=== PATIENT | male | born 1955 | race Caucasian/White ===

== ENCOUNTER → 2021-07-16 | Outpatient (CLI) | payer OTHER | LOC: SJCVC 10:30 | PROVIDERS: ATTEND Internal Medicine | DX: R00.1 Bradycardia, unspecified (principal); E78.00 Pure hypercholesterolemia, unspecified; E11.9 Type 2 diabetes mellitus without complications; I10 Essential (primary) hypertension; E78.5 Hyperlipidemia, unspecified; R00.2 Palpitations; F12.90 Cannabis use, unspecified, uncomplicated; Z87.891 Personal history of nicotine dependence; Z72.89 Other problems related to lifestyle; Z79.82 Long term (current) use of aspirin; Z79.84 Long term (current) use of oral hypoglycemic drugs; Z79.899 Other long term (current) drug therapy ==

== ENCOUNTER → 2021-08-06 | Outpatient (CLI) | payer OTHER | LOC: SJCVCIMAG 07:49 | PROVIDERS: ATTEND Internal Medicine | DX: R00.1 Bradycardia, unspecified (principal); I20.8 Other forms of angina pectoris; R00.2 Palpitations; E11.9 Type 2 diabetes mellitus without complications; I10 Essential (primary) hypertension; E78.00 Pure hypercholesterolemia, unspecified; F12.90 Cannabis use, unspecified, uncomplicated; Z79.82 Long term (current) use of aspirin; Z79.84 Long term (current) use of oral hypoglycemic drugs; Z79.899 Other long term (current) drug therapy; Z87.891 Personal history of nicotine dependence ==

== ENCOUNTER 2021-08-14 06:29 | Observation (INO) | payer OTHER ==
[~2021-08-14] VITALS: Ht 185.4 cm; Wt 79.9 kg
--- NOTE | 2021-08-14 07:20 | EKG ---
[address] [address] ELECTROCARDIOGRAM REPORT Name: RAJAN MUNROE Room #: [facility]#: [id number] Admission: 08/14/21 Attend Phys: Zafar Gonzáles MD, Discharge: Date of : 57 Report #: [id number] [facility] Test Date: 2021-08-14 Test Time: 07:18:04 Pat Name: RAJAN MUNROE Department: Room: Gender: Bridge Inspector: [facility] : 1955 Requested By: Skip Last Order Number: [id number] : Zafar Gonzáles Measurements Intervals [place] Rate: 50 P: 38 NE: 179 QRS: 6 QRSD: 90 T: 47 QT: 448 QTc: 409 Interpretive Statements Sinus rhythm No previous ECG available for comparison Electronically Signed On 08-14-2021 7:20:35 LOOPING INSPECTOR by Zafar Gonzáles [email or web address] <ELECTRONICALLY SIGNED> By: Zafar Gonzáles MD, [facility] 08/14/21719 7 7 Zafar Gonzáles MD, FACC /EPI
[2021-08-14 07:25] LABS: HEMATOCRIT 40.9 % (42.0-52.0); HEMOGLOBIN 13.8 gm/dL (14.0-18.0); MCH 31.1 pg (26.0-34.0); MCHC 33.7 g/dL (28.0-37.0); MCV 92.2 fL (80.0-100.0); RBC 4.44 mil/uL (4.50-6.00); RDW 13.3 % (10.5-14.5); WBC 9.7 thou/uL (4.0-11.0)
[2021-08-14 07:32] LABS: CALCIUM 9.5 mg/dL (8.5-10.1); CREATININE 1.1 mg/dL (0.7-1.3); POTASSIUM 4.3 mmol/L (3.5-5.1)
[2021-08-14 07:34] VITALS: BP 128/63
[2021-08-14] MEDS ORDERED: ASPIRIN EC325 MG PO (07:38)
[2021-08-14] MEDS ORDERED: METFORMIN HCL500 M3 PO (07:39)
[2021-08-14] MEDS ORDERED: LISINOPRIL10 MG PO (07:39)
[2021-08-14] MEDS ORDERED: ZOCOR20 MG PO (07:40)
[2021-08-14] MEDS ORDERED: TOPROL XL25 MG PO (07:40)
[2021-08-14] MEDS ORDERED: SUPER THERAVIT1 EACH PO (07:40)
[2021-08-14] MEDS ORDERED: LIPITOR 20 MG T20 M1 PO (11:04)
[2021-08-14] MEDS ORDERED: EFFIENT10 MG PO (11:04)
[2021-08-14] MEDS ORDERED: ASA81BEC PO (11:04)
[2021-08-14 16:00] VITALS: BP 143/74
--- NOTE | 2021-08-14 18:13 | NUR ---
NO INJURIES OR FALLS THIS SHIFT. ALL SAFETY MEASURES IN PLACE. VSS. PATIENT ABLE TO COMPLETE ADLs INDEPENDENTLY. UP AD MALIKA IN ROOM. HEART CATH COMPLETED TODAY WITH A STENT TO THE PROXIMAL LAD. SITE IS CDI WITH MINIMAL OLD BLOOD AND IS SOFT TO TOUCH. SB WITH PAC ON TELE. PATIENT RESTING IN BED AT THIS TIME. EATEN 100% OF DINNER AND WILL DC HOME TOMORROW. PATIENT PROGRESSING TOWARD POC.
[2021-08-14 19:34] VITALS: BP 134/67
[2021-08-14 23:33] VITALS: BP 118/59
--- NOTE | 2021-08-15 05:36 | NUR ---
ASSUMED PT CARE AT 1900, ALERT AND ORIENTEDX4, R. GROIN CATH SITE CDI, NO HEMATOMA,SR/PVCS ON TELE, C/O CHRONIC BACK PAIN, REFUSED TYL, ASSESSMENTS CHARTED, PLAN FOR D/C HOME TODAY
[2021-08-15 05:42] VITALS: BP 108/56
[2021-08-15 08:05] VITALS: BP 126/69
[2021-08-15 10:35] VITALS: BP 126/69
--- NOTE | 2021-08-15 10:58 | NUR ---
ASSESSMENT CHARTED , MEDS PER MAR - NO CO'S OF PAIN OR NAUSEA. ALRETTE DIET AND FLUIDS. GROIN SITE C/D/I. UP AD MALIKA IN ROOM. HOMETHIS AM INSTRUCTION RE HOME MEDS/ CARE AND FOLLOW UP GIVEN TO PATIENT - STATED UNDERSTANDING OF INSTRUCTION GIVEN. LEFT UNIT IA WHEELCHAIR - HOME ACCOMAPANIED BY VIA OVT VEHICLE - NO CO'S AT TIME OF D/C.
--- NOTE | 2021-08-16 17:27 | CATHLAB ---
[facility] [place] [address] INVASIVE PROCEDURE REPORT Name: SHANEKARAJAN Room #: 218-P [facility] Gabriel M.RMadison#: [id number] Admission: 08/14/21 Attend Phys: Zafar Gonzáles MD, Discharge: 08/15/21 Date of : 57 Report #: [id number] THIS REPORT FOR: cc: Bright Lyn Gregory DO Mancuso, Gerald M. MD [facility] ~ APPROVED REPORT Study performed: 08/14/2021 08:20:24 Patient Details Patient Status: Out-Patient Room #: The patient is a 66 year-old male Event Personnel Skip Last Associate Professor Of Medicine, Quynh Gatica RN RN, Liberty Osuna RTR ScrubMarkel Ja'net RTR Monitor Procedures Performed Left Heart Cath w/or w/o Coronaries [id number] [facility] LEOBARDO Place w/wo Plasty Single LAD [id number] Art Access - R femoral artery* Abdominal Aortography [id number] [id number] Initial Mod Sed Same Phys/QHP Gr5y 440598 08384 Mod Sed Same Phys/QHP Ea 615061 Indication Chest pain Procedure Narrative The Right Groin^ was infiltrated with 1% Lidocaine subcutaneous anesthesia. A PINNACLE 6FR Sheath #[id number] sheath was inserted into the RFA^. Coronary angiography was performed using coronary diagnostic catheters. The right coronary system was accessed and visualized with a JR4 catheter. The left coronary system was accessed and visualized with a JL4 catheter. The left ventricle was accessed and visualized with a PIGTAIL catheter. An aortogram of the abdominal aorta was performed. Closure device was deployed with a 6 Fr MYNX APPLICATION ADMINISTRATOR. There was no hematoma. Intraoperative Conscious Sedation Sedation start time: 8:46 Case end Time: 9:47 Fluoro Time: 9.37 minutes Dose: DAP 49273.80 cGycm2 1558 mGy Contrast Type and Amount: Omnipaque [address] [facility] [place] [address] INVASIVE PROCEDURE REPORT Name: RAJAN MUNROE Room #: 218-P [facility] IN ..#: [id number] Admission: 08/14/21 Attend Phys: Zafar Gonzáles, Discharge: 08/15/21 Date of : 57 Report #: [id number] Hemodynamics The aortic pressure is 115/58 mmHg with a mean of 78 mmHg. The left ventricular pressure is 132/3 mmHg with a mean of mmHg. The left ventricular end diastolic pressure is 17 mmHg. PCI Technique Lesion Percutaneous coronary intervention was performed on the proximal left anterior descending artery segment. A EBU 3.75 LAUNCHER Guide Catheter was used to engage the LAD ostium. A LUGE Interventional Guidewire was used to cross the lesion. BALLOON DILATION A Balloon catheter SPRINTER OTW 2.5 X15 was inserted and inflated up to 10.00atm for 23seconds. Additional Inflation: 12.00atm for 18seconds. Additional Inflation: 16.00atm for 28seconds. ADDITIONAL INFLATION:16atm for 28 seconds. Additional Inflation: 15atm for 18 seconds. Additional Inflation: 20atm for 22 seconds. A balloon Catheter NC TREK 2.75mm x 15mm was inserted and inflated up to 10 kobi for 16 seconds. Additional Inflation: 20 kobi for 28 seconds. STENT DEPLOYMENT A stent Resolute Cotati 2.75mm x 30mm was inserted and inflated up to 15.00atm for 25seconds. POST STENT DEPLOYMENT BALLOON DILATION A Balloon catheter NC TREK 2.75 mm x 15 mm was inserted and inflated up to 20.00atm for 17seconds. Additional Inflation: 20.00atm for 14seconds. Additional Inflation: 20.00atm for 13seconds. Additional Inflation: 22 kobi for 20 seconds. Conclusion #1 Successful PTCA stent of a long high-grade lesion with moderate calcification in the proximal LAD. Placement of a 2.75 x 30 resolute Cotati stent postdilated 2.9 mm ALEC grade III flow no dissection or thrombus formation. #2 left main with mild disease mild calcification widely patent giving rise to LAD and circumflex. #3 a codominant circumflex is moderate distribution with no occlusive disease. #4 a smaller codominant right coronary is mild irregularity small in caliber. Giving rise to a small PDA. #5 normal left ventricular size with subtle anterior apical wall leg EF 55%. #6 abdominal aorta is mildly ectatic. There is mild distal dilatation. Will evaluate noninvasively. [facility] [address] [place] [address] INVASIVE PROCEDURE REPORT Name: RAJAN MUNROE Room #: 218-P [facility] IN M.R.#: [id number] Admission: 12/01/21 Attend Phys: Zafar Gonzáles, Discharge: 08/15/21 Date of : 57 Report #: [id number] Recommendations and plan: Continue aggressive risk factor modification. Dual antiplatelet therapy has been initiated. Patient transferred to CCU in stable condition follow post coronary stent protocol. <ELECTRONICALLY SIGNED> By: Skip Last MD, FACC 08/16/211726 26 26 Skip Last MD, FACC /INF
== END 2021-08-15 10:55 | disposition home or self-care (01) ==
LOC: CATH 06:29 → 2N 14:15
PROVIDERS: ADMIT Internal Medicine Cardiovascular Disease; ATTEND Internal Medicine
DX: I25.110 Atherosclerotic heart disease of native coronary artery with unstable angina pectoris (principal); I10 Essential (primary) hypertension; E78.00 Pure hypercholesterolemia, unspecified; E11.9 Type 2 diabetes mellitus without complications; I25.5 Ischemic cardiomyopathy; Z79.82 Long term (current) use of aspirin; Z87.891 Personal history of nicotine dependence; Z79.899 Other long term (current) drug therapy; Z23 Encounter for immunization